=== PATIENT | female | born 2005 | race African-American/Black ===

== ENCOUNTER 2025-06-10 03:28 | Emergency (ER) | payer OTHER ==
[~2025-06-10] VITALS: Ht 162.6 cm; Wt 59.3 kg
[2025-06-10 03:31] VITALS: TEMP 97.8
[2025-06-10 05:10] LABS: BASO # 0.0 10^3/uL (0.0-0.2); BASO % 0.4 % (0.0-1.0); EOS # 0.1 10^3/uL (0.0-0.5); EOS % 1.8 % (0.0-3.0); LYMPH # 3.2 10^3/uL (1.5-5.0); LYMPH % 39.8 % (24.0-44.0); MONO # 0.7 10^3/uL (0.0-0.8); MONO % 8.4 % (2.0-8.0); NEUTROPHILS # 3.9 10^3/uL (1.5-8.5); NEUTROPHILS % 49.3 % (36.0-66.0); PLATELET COUNT, AUTOMATED 207 10^3/uL (150-450)
[2025-06-10 05:27] LABS: CPK CREATINE PHOSPHOKINASE 172 U/L (34-145)
[2025-06-10 05:28] LABS: ALT/SGPT 10 U/L (7.0-40); AST/SGOT 17 U/L (<34); CALCIUM LEVEL 9.0 MG/DL (8.5-10.1); CARBON DIOXIDE LEVEL 29 MMOL/L (20-31); CHLORIDE LEVEL 106 MMOL/L (98-107); CK-MB VALUE MASS < 1.0 NG/ML (<3.6); CREATININE FOR GFR 0.73 MG/DL (0.55-1.30); GLOMERULAR FILTRATION RATE > 90.0 (>60); POTASSIUM SERUM 4.0 MMOL/L (3.5-5.1); SODIUM LEVEL 142 MMOL/L (136-145)
[2025-06-10 08:00] VITALS: BP 107/71
[2025-06-10 08:13] VITALS: O2SAT 98
== END 2025-06-10 08:51 | disposition home or self-care (01) ==
LOC: M ED 03:28
DX: R07.9 Chest pain, unspecified (principal); Z88.8 Allergy status to other drugs, medicaments and biological substances; Z91.048 Other nonmedicinal substance allergy status

== ENCOUNTER 2025-06-24 21:52 | Emergency (ER) | payer OTHER ==
[~2025-06-24] VITALS: Ht 162.6 cm; Wt 56.8 kg
[2025-06-24 23:56] VITALS: BP 108/67; TEMP 98.2; O2SAT 97
== END 2025-06-24 23:55 | disposition home or self-care (01) ==
LOC: M ED 21:52
DX: T19.2XXA Foreign body in vulva and vagina, initial encounter (principal); Y92.9 Unspecified place or not applicable; Z88.7 Allergy status to serum and vaccine

== ENCOUNTER 2025-07-02 11:33 | Emergency (ER) | payer OTHER ==
[2025-07-02] MEDS ORDERED: HEARTAB2 (11:43)
[2025-07-02 12:33] LABS: BASO # 0.0 10^3/uL (0.0-0.2); BASO % 0.3 % (0.0-1.0); EOS # 0.0 10^3/uL (0.0-0.5); EOS % 0.1 % (0.0-3.0); LYMPH # 1.7 10^3/uL (1.5-5.0); LYMPH % 19.2 % (24.0-44.0); MONO # 0.6 10^3/uL (0.0-0.8); MONO % 6.6 % (2.0-8.0); NEUTROPHILS # 6.4 10^3/uL (1.5-8.5); NEUTROPHILS % 73.3 % (36.0-66.0); PLATELET COUNT, AUTOMATED 239 10^3/uL (150-450)
[2025-07-02 12:56] LABS: HCG, SERUM QUALITATIVE NEGATIVE (NEGATIVE)
[2025-07-02 13:02] LABS: CALCIUM LEVEL 9.9 MG/DL (8.5-10.1); CARBON DIOXIDE LEVEL 26 MMOL/L (20-31); CHLORIDE LEVEL 104 MMOL/L (98-107); CK-MB VALUE MASS 2.0 NG/ML (<3.6); CPK CREATINE PHOSPHOKINASE 475 U/L (34-145); CREATININE FOR GFR 0.67 MG/DL (0.55-1.30); GLOMERULAR FILTRATION RATE > 90.0 (>60); MB/CK RELATIVE INDEX 0.42 (< OR =4); POTASSIUM SERUM 3.8 MMOL/L (3.5-5.1); SODIUM LEVEL 139 MMOL/L (136-145)
[2025-07-02] MEDS ORDERED: ISOVUE-370 76% 100 ML VIAL As Ordered ONE (13:46)
[2025-07-02] MEDS: NS (Normal Saline) 0.9% 1,000 ML IV ONE (14:08)
[2025-07-02 14:37] LABS: CK-MB VALUE MASS 2.3 NG/ML (<3.6)
[2025-07-02 14:39] LABS: INR 1.06
[2025-07-02 14:46] LABS: CPK CREATINE PHOSPHOKINASE 478.0 U/L (34-145); MB/CK RELATIVE INDEX 0.48 (< OR =4)
[2025-07-02 15:18] VITALS: BP 108/63; TEMP 96.5; O2SAT 100
== END 2025-07-02 15:37 | disposition home or self-care (01) ==
LOC: M ED 11:33
DX: R07.89 Other chest pain (principal); K21.9 Gastro-esophageal reflux disease without esophagitis; R91.8 Other nonspecific abnormal finding of lung field; Z88.7 Allergy status to serum and vaccine
CPT/HCPCS: 71275; 80048; 82550; 82553; 84484; 84703; 85025; 85379; 85610; 85730; 93005; 96360; 99284; Q9967

== ENCOUNTER 2025-07-12 12:47 | Emergency (ER) | payer OTHER ==
[~2025-07-12] VITALS: Ht 162.6 cm; Wt 59.6 kg
[~2025-07-12 12:47] MED LIST: HEARTAB2
[2025-07-12] MEDS: ASPIRIN 81 MG CHEWABLE TABLET PO ONE (14:28)
[2025-07-12 14:51] LABS: BASO # 0.0 10^3/uL (0.0-0.2); BASO % 0.7 % (0.0-1.0); EOS # 0.1 10^3/uL (0.0-0.5); EOS % 1.5 % (0.0-3.0); LYMPH # 2.2 10^3/uL (1.5-5.0); LYMPH % 37.4 % (24.0-44.0); MONO # 0.6 10^3/uL (0.0-0.8); MONO % 10.0 % (2.0-8.0); NEUTROPHILS # 3.0 10^3/uL (1.5-8.5); NEUTROPHILS % 50.2 % (36.0-66.0); PLATELET COUNT, AUTOMATED 216 10^3/uL (150-450)
[2025-07-12 15:08] LABS: CK-MB VALUE MASS < 1.0 NG/ML (<3.6)
[2025-07-12 15:11] LABS: CPK CREATINE PHOSPHOKINASE 151 U/L (34-145)
[2025-07-12 15:12] LABS: ALT/SGPT 11 U/L (7.0-40); AST/SGOT 19 U/L (<34); CALCIUM LEVEL 9.5 MG/DL (8.5-10.1); CARBON DIOXIDE LEVEL 29 MMOL/L (20-31); CHLORIDE LEVEL 107 MMOL/L (98-107); CREATININE FOR GFR 0.74 MG/DL (0.55-1.30); GLOMERULAR FILTRATION RATE > 90.0 (>60); POTASSIUM SERUM 3.8 MMOL/L (3.5-5.1); SODIUM LEVEL 143 MMOL/L (136-145)
[2025-07-12 15:39] VITALS: TEMP 97.5
[2025-07-12 15:40] VITALS: BP 98/68
[2025-07-12 15:47] VITALS: O2SAT 100
== END 2025-07-12 15:53 | disposition home or self-care (01) ==
LOC: M ED 12:47
DX: J00 Acute nasopharyngitis [common cold] (principal); B34.9 Viral infection, unspecified; Z79.899 Other long term (current) drug therapy; Z88.7 Allergy status to serum and vaccine

== ENCOUNTER 2025-07-18 15:13 | Emergency (ER) | payer OTHER ==
[~2025-07-18] VITALS: Ht 152.4 cm; Wt 57.9 kg
[2025-07-18 17:10] LABS: BASO # 0.0 10^3/uL (0.0-0.2); BASO % 0.4 % (0.0-1.0); EOS # 0.1 10^3/uL (0.0-0.5); EOS % 0.7 % (0.0-3.0); LYMPH # 2.8 10^3/uL (1.5-5.0); LYMPH % 34.7 % (24.0-44.0); MONO # 0.7 10^3/uL (0.0-0.8); MONO % 8.8 % (2.0-8.0); NEUTROPHILS # 4.5 10^3/uL (1.5-8.5); NEUTROPHILS % 55.3 % (36.0-66.0); PLATELET COUNT, AUTOMATED 216 10^3/uL (150-450)
[2025-07-18 17:14] LABS: ALT/SGPT 11 U/L (7.0-40); AST/SGOT 18 U/L (<34); C REACTIVE PROTEIN QUANTITATIV < 0.50 MG/DL (<1.0); CALCIUM LEVEL 9.1 MG/DL (8.5-10.1); CARBON DIOXIDE LEVEL 26 MMOL/L (20-31); CHLORIDE LEVEL 102 MMOL/L (98-107); CK-MB VALUE MASS < 1.0 NG/ML (<3.6); CREATININE FOR GFR 0.64 MG/DL (0.55-1.30); GLOMERULAR FILTRATION RATE > 90.0 (>60); MAGNESIUM LEVEL 1.7 MG/DL (1.8-2.4); POTASSIUM SERUM 3.8 MMOL/L (3.5-5.1); SODIUM LEVEL 138 MMOL/L (136-145)
[2025-07-18 17:16] LABS: FREE T4 1.38 NG/DL (0.89-1.76)
[2025-07-18 17:17] LABS: HCG, SERUM QUALITATIVE NEGATIVE (NEGATIVE)
[2025-07-18 17:27] LABS: CPK CREATINE PHOSPHOKINASE 143 U/L (34-145)
[2025-07-18] MEDS: MAG SULF 1GM/100ML (MAG RUN) 1 GM in IV 1 EA IV ONE (17:45)
[2025-07-18] MEDS ORDERED: ISOVUE-370 76% 100 ML VIAL As Ordered ONE (17:50)
[2025-07-18] MEDS ORDERED: HOLTER MONITOR XX (19:27)
[2025-07-18 19:30] VITALS: BP 117/65; TEMP 98.8; O2SAT 98
== END 2025-07-18 19:43 | disposition home or self-care (01) ==
LOC: M ED 15:13
DX: R07.89 Other chest pain (principal); R91.8 Other nonspecific abnormal finding of lung field; Z79.899 Other long term (current) drug therapy; Z88.8 Allergy status to other drugs, medicaments and biological substances
CPT/HCPCS: 71260; 80053; 82550; 82553; 83735; 84439; 84443; 84484; 84703; 85025; 85652; 86140; 93005; 96374; 99284; J3475; Q9967

== ENCOUNTER → 2025-07-20 | Outpatient (CLI) | payer OTHER ==
[~2025-07-20] MED LIST changes: +HOLTER MONITOR XX
== END ==
LOC: M EKG 13:30
DX: R07.9 Chest pain, unspecified (principal)